=== PATIENT | female | born 1960 | race Caucasian/White ===

== ENCOUNTER → 2023-05-15 | Outpatient (CLI) | payer MEDICARE ==
[2023-05-15 15:25] LABS: Prothrombin Time 10.5 sec (9.0-12.0)
[2023-05-15 21:27] LABS: ALT 14 U/L (8-44); AST 14 U/L (13-35); Albumin 4.7 d/dL (3.8-4.9); Albumin/Globulin Ratio 2.24 Ratio (1.60-3.17); Alkaline Phosphatase 95 U/L (41-126); Blood Urea Nitrogen 28.6 mg/dL (9.0-27.0); Calcium 10.2 mg/dL (8.7-10.3); Carbon Dioxide 24.6 mmol/L (21.6-31.8); Chloride 102 mmol/L (96-109); Globulin 2.1 d/dL (1.6-3.3); Glucose 186 mg/dL (70-110); Potassium 4.2 mmol/L (3.5-5.5); Sodium 142 mmol/L (135-145); Total Bilirubin 1.3 mg/dL (0.3-1.2); Total Protein 6.8 d/dL (6.2-8.2)
[2023-05-15 21:36] LABS: Appearance,Urine Turbid (Clear); Bacteria,Urine 1+ (None Seen); Bilirubin,Urine Negative (Negative); Blood,Urine Trace (Negative); Calcium Oxalate Crystals,Urine Present (None Seen); Color,Urine Yellow (Yellow); Ketones,Urine Trace (Negative); Nitrite,Urine Negative (Negative); Specific Gravity,Urine 1.021 (1.001-1.030); Urobilinogen,Urine 0.2; Yeast (UA) Present (None Seen)
[2023-05-15 22:30] LABS: HCT 37.3 % (37.2-46.3); HGB 11.1 d/dL (12.0-15.0); MCH 26.4 pg (27.0-32.0); MCHC 29.8 d/dL (32.0-37.0); MCV 88.6 FL (80.0-97.0); NRBC Per 100 WBC 0 X 10*3/uL (0.00-0.01); Platelet Count 304 X 10*3/uL (140-440); RBC 4.21 X 10*6/uL (4.10-5.20); RDW 14.6 % (11.5-14.5); WBC 7.34 X 10*3/uL (4.50-10.00)
== END | disposition home or self-care (01) ==
LOC: LABPAT 12:38
PROVIDERS: ATTEND Orthopaedic Surgery
DX: Z01.812 Encounter for preprocedural laboratory examination (principal); M17.11 Unilateral primary osteoarthritis, right knee
CPT/HCPCS: 80053; 81001; 83036; 85027; 85610; 85730; 87070

== ENCOUNTER → 2023-06-06 | Outpatient (CLI) | payer MEDICARE | END | disposition home or self-care (01) | LOC: LABWHC1 13:55 | PROVIDERS: ATTEND Orthopaedic Surgery | DX: E11.9 Type 2 diabetes mellitus without complications (principal) | CPT/HCPCS: 36415; 82985; 83036 ==

== ENCOUNTER → 2023-07-15 | Outpatient (CLI) | payer MEDICARE ==
[2023-07-15 12:06] LABS: HCT 35.3 % (34.0-46.0); HGB 11.3 gm/dL (11.4-16.0); Hypochromasia Moderate; MCH 26.9 pg (25.0-35.0); MCHC 32.1 g/dL (31.0-37.0); MCV 84.1 fL (80.0-100.0); Mean Platelet Volume 9.3; Platelet Count 230 k/uL (150-450); RDW 15.2 % (11.5-15.5); WBC 8.3 k/uL (3.8-10.6)
[2023-07-15 12:20] LABS: ALT 15 U/L (4-34); AST 26 U/L (14-36); African American GFR (CKD) >90 (>60 ml/min/1.73 sqM); Albumin 4.2 g/dL (3.5-5.0); Alkaline Phosphatase 100 U/L (38-126); Anion Gap 11 mmol/L; Blood Urea Nitrogen 27 mg/dL (7-17); Calcium 9.8 mg/dL (8.4-10.2); Carbon Dioxide 26 mmol/L (22-30); Chloride 104 mmol/L (98-107); Glucose 158 mg/dL (74-99); Non-African American GFR(CKD) >90 (>60 ml/min/1.73 sqM); Potassium 3.8 mmol/L (3.5-5.1); Sodium 141 mmol/L (137-145); Total Bilirubin 0.9 mg/dL (0.2-1.3); Total Protein 6.7 g/dL (6.3-8.2)
[2023-07-15 12:30] LABS: INR 1.1 (<1.2); Partial Thromboplastin Time 27.9 sec (22.0-30.0); Prothrombin Time 11.9 sec (10.0-12.5)
[2023-07-15 16:16] LABS: Bacteria,Urine Rare /hpf; Budding Yeast,Urine Many /hpf; Mucus,Urine Moderate /hpf; RBC,Urine 23 /hpf (0-5); Squamous Epithelial Cell,Urine 40 /hpf (0-4); WBC,Urine 145 /hpf (0-5)
[2023-07-15 16:18] LABS: Appearance,Urine Cloudy (Clear); Color,Urine Yellow
[2023-07-15 16:19] LABS: Bilirubin,Urine Negative (Negative); Blood,Urine Trace (Negative); Glucose,Urine (UA) Negative (Negative); Ketones,Urine 1+ (Negative); PH, Urine 5.5 (5.0-8.0); Protein,Urine 1+ (Negative); Specific Gravity,Urine >1.030 (1.001-1.035); Urobilinogen,Urine >2.0 mg/dL (<2.0)
[2023-07-15 16:20] LABS: Leukocyte Esterase,Urine Large (Negative); Nitrite,Urine Negative (Negative)
== END ==
LOC: PAT 10:52
PROVIDERS: ATTEND Orthopaedic Surgery
DX: Z01.812 Encounter for preprocedural laboratory examination (principal); M17.11 Unilateral primary osteoarthritis, right knee
CPT/HCPCS: 80053; 81001; 85027; 85610; 85730; 87070

== ENCOUNTER → 2023-07-20 | Outpatient (CLI) | payer MEDICARE | END | disposition home or self-care (01) | LOC: LABWHC1 16:38 | PROVIDERS: ATTEND Orthopaedic Surgery | DX: M17.11 Unilateral primary osteoarthritis, right knee (principal); M25.461 Effusion, right knee; M79.7 Fibromyalgia | CPT/HCPCS: 36415; 83036 ==

== ENCOUNTER 2023-07-28 08:38 | Observation (INO) | payer MEDICARE ==
[~2023-07-28 08:38] MED LIST: ACETAMINOPHEN TAB 500 MG TAB PO PRN; DEXAMETHASONE SOD PHOSPHATE 10 MG/ML 1 ML VIAL IV PRN; DOCUSATE 100 MG CAP PO PRN; FAMOTIDINE 20 MG/2 ML VIAL IVP PRN; KETOROLAC 15 MG/ML 1 ML VIAL IVP PRN; ONDANSETRON 4 MG/2 ML VIAL IVP PRN; ROPIVACAINE/EPI/CLONIDINE/KET 50 ML SYRINGE MISCELLANE PRN; TRANEXAMIC 1,000 MG/100ML-NACL 1,000 MG in SALINE 1 100ML.BAG IV PRN; TRANEXAMIC 1,000 MG/100ML-NACL 1,000 MG in SALINE 1 100ML.BAG IVPB PRN; oxyCODONE ER 10 MG TAB.ER.12H PO PRN
[2023-07-28] MEDS ORDERED: HYDROmorphone 0.5 MG/0.5 ML SYRINGE IVP PRN (09:00)
[2023-07-28] MEDS ORDERED: ONDANSETRON 4 MG/2 ML VIAL IVP ONE (09:00)
[2023-07-28] MEDS ORDERED: LIDOCAINE 1% (10MG/ML) FOR IV START INTRADERMA PRN (09:00)
[2023-07-28] MEDS ORDERED: droPERidol 5 MG/2 ML VIAL IVP ONE (09:00)
[2023-07-28 09:39] LABS: Glucose,Whole Blood 126 mg/dL (70-110)
[2023-07-28] MEDS: LACTATED RINGERS 1,000 ML IV SCH (09:47)
[2023-07-28] MEDS ORDERED: MIDAZOLAM 2 MG/2 ML VIAL IVP ONE (10:09)
[2023-07-28] MEDS ORDERED: fentaNYL (PF) 50 MCG/ML 2 ML AMP IVP ONE (10:09)
--- NOTE | 2023-07-28 10:36 | P.ANPRN ---
Procedure Note - Anesthesia - Nerve Block Performed Right Adductor Canal Single Time Out Performed: Yes Date of Procedure: 07/28/23 Procedure Start Time: 10:00 Procedure Stop Time: 10:10 Location of Patient: PreOp Indication: Acute Post-Operative Pain, Dx/Pain Location, Requested by Surgeon Sedation Type: Sedate with meaningful contact maintained Preparation: Sterile Prep Position: Supine Catheter: None Needle Types: Pajunk Needle Gauge: 21 Ultrasound used to visualize needle placement: Yes Ultrasound used to observe medication spread: Yes Injectate: 0.5% Ropivacaine (see comment for volume) (20ml) Blood Aspirated: No Pain Paresthesia on Injection Noted: No Resistance on Injection: Normal Image Stored and Saved: Yes Events: Uneventful and Well Tolerated
--- NOTE | 2023-07-28 10:39 | P.ANPRN ---
Procedure Note - Anesthesia - Nerve Block Performed Right Meghan Single Time Out Performed: Yes Date of Procedure: 07/28/23 Procedure Start Time: 10:10 Procedure Stop Time: 10:15 Location of Patient: PreOp Indication: Acute Post-Operative Pain, Dx/Pain Location, Requested by Surgeon Sedation Type: Sedate with meaningful contact maintained Preparation: Sterile Prep Position: Supine Needle Types: Pajunk Needle Gauge: 21 Ultrasound used to visualize needle placement: Yes Ultrasound used to observe medication spread: Yes Injectate: Other (see comment) (0.2% Ropivacaine 15ml) Blood Aspirated: No Pain Paresthesia on Injection Noted: No Resistance on Injection: Normal Image Stored and Saved: Yes Events: Uneventful and Well Tolerated
[2023-07-28] MEDS ORDERED: fentaNYL (PF) 50 MCG/ML 2 ML AMP ONE (10:54)
[2023-07-28] MEDS ORDERED: SUCCINYLCHOLINE CHLORIDE 200 MG/10 ML VIAL IV ONE (10:54)
[2023-07-28] MEDS ORDERED: LIDOCAINE 1% INJ 10MG/ML (20 ML MDV) ONE (10:54)
[2023-07-28] MEDS ORDERED: ROPIVACAINE 5 MG/ML 30 ML VIAL ONE (10:54)
[2023-07-28] MEDS ORDERED: HYDROCORTISONE SUCCINATE 100 MG/2 ML VIAL ONE (10:54)
[2023-07-28] MEDS ORDERED: NEOSTIGMINE 1 MG/ML 10 ML VIAL ONE (10:54)
[2023-07-28] MEDS ORDERED: TRANEXAMIC 1,000 MG/100ML-NACL PREMIX BAG ONE (10:54)
[2023-07-28] MEDS ORDERED: ROCURONIUM 10 MG/ML (5 ML VIAL) IV ONE (10:54)
[2023-07-28] MEDS ORDERED: PROPOFOL 10 MG/ML 20 ML VIAL IV ONE (10:54)
[2023-07-28] MEDS ORDERED: GLYCOPYRROLATE 0.2 MG/ML 2 ML VIAL ONE (10:54)
[2023-07-28] MEDS ORDERED: LACTATED RINGERS 1,000 ML IV ONE (12:35)
[2023-07-28] MEDS ORDERED: NALOXONE 0.4 MG/ML 1 ML VIAL IV PRN (13:11)
[2023-07-28] MEDS ORDERED: HYDROcodone/APAP 5-325MG 1 EACH TAB PO PRN (13:11)
[2023-07-28] MEDS ORDERED: MAGNESIUM HYDROXIDE 2,400 MG/30 ML CUP PO PRN (13:11)
[2023-07-28] MEDS ORDERED: ONDANSETRON 4 MG/2 ML VIAL IVP PRN (13:11)
[2023-07-28] MEDS ORDERED: hydrOXYzine pamoate 25 MG CAP PO PRN (13:11)
--- NOTE | 2023-07-28 13:11 | P.OP ---
Date of Procedure: 07/28/23 Preoperative Diagnosis: 1. Severe right knee arthritis 2. Type 2 diabetes 3. History of DVT and PE Postoperative Diagnosis: Same Procedure(s) Performed: 1. Right total knee arthroplasty 2. Computer assisted musculoskeletal navigation using CT/MRI images 3. Occasional negative pressure incisional wound VAC less than 50 cm, right knee incision measuring 15 cm Implants: 1. Christian [employer] CR Femur Size #4 2. [employer] [place] Tibial Base Size #3 with 12x50 stem 3. Julian [employer] CS poly Size #9 4. Julian [employer]lon all poly patella, Size #29 Anesthesia: GETA, regional Surgeon: Davion Kemp Estimated Blood Loss (ml): 100 IV fluids (ml): 800 Pathology: none sent Condition: stable Disposition: PACU Indications for Procedure: A long discussion with the patient in the office prior to surgery about treatment for her knee arthritis. She had failed a long course of nonsurgical treatment and requested proceeding with surgery. The patient had multiple medical factors. Initially her hemoglobin A1c was elevated and was above 8 and I recommended decreasing this prior to elective surgery. Through diet modification and medications she was able to bring her hemoglobin A1c below 7. We discussed that this will help but she is still at an elevated risk. The patient and her voiced their understanding of this. The knowledge that she is at a higher risk of complication particularly delayed wound healing, superficial infection, periprosthetic joint infection, and periprosthetic fracture. I met with the patient preoperatively in the office setting and discussed treatment of their symptomatic knee arthritis. They failed a long course of nonsurgical treatment and elected to proceed with an elective total knee replacement. I discussed the potential risks and complications at length and gave them ample time to ask questions. Risks discussed included: risks from anesthesia, superficial site surgical infection, acute and/or chronic periprosthetic joint infection, delayed wound healing, drainage, wound necrosis, instability, stiffness, stiffness requiring manipulation and/or revision surgery, damage to local blood vessels or nerves, aseptic loosening of the implants, extensor mechanism issues including disruption, patellar maltracking, avascular necrosis etc., continued or worsened knee pain, generalized dissatisfaction with surgical outcome, need for revision surgery, an inability to regain preinjury level of function, DVT, PE, other medical complications, and possibly loss of life or limb. The patient voiced their understanding that while these are the most common complications other less common complications are possible. They provided both their verbal and written consent to go forward with surgery. Operative Findings: Severe tricompartmental knee osteoarthritis Description of Procedure: The patient was identified in preoperative holding and the correct operative extremity was verified and marked with a marker. I reviewed the consent form with the patient at length. All of their questions were answered. The patient was given a block by anesthesia. They were then brought back to the operating room. They were transferred onto the operating room table where a general anesthetic, preoperative antibiotics, and tranexamic acid were administered by anesthesia. A tourniquet was applied to the proximal aspect of the operative extremity. The contralateral extremity was padded under the heel and secured to the operating room table with a nonsterile blue towel and tape. The ipsilateral arm was carefully draped across the patient's chest and secured with a pillow and foam. A post was applied over the lateral aspect of the ipsilateral thigh and a bolster was placed under the ipsilateral foot. I verified that the operative extremity was stable and the knee was flexed to 90. The operative extremity was then placed in a leg johnston, nonsterile drapes were applied, and the extremity was prepped and draped sterilely in the standard sterile fashion. Prior to starting surgery timeout was performed identifying the correct patient, operative extremity, and procedure. The leg was then elevated, exsanguinated with an Esmarch bandage, and the tourniquet was inflated. An anterior midline incision was made sharply with a scalpel. Once I had dissected deep to the superficial fascial layer medial and lateral flaps were elevated. A medial parapatellar arthrotomy was created. Upon opening the knee joint there were diffuse arthritic changes in all 3 compartments. The anterior horn of the medial meniscus were sharply released and a medial release was performed around the posterior medial corner of the knee to facilitate retractor placement. The fat pad was excised with electrocautery. The patella was found to be severely arthritic and a provisional cut was made with a sagittal saw to facilitate mobilization of the extensor mechanism during the procedure. Remnants of the ACL and PCL were then excised from the notch. 4 mm pins were then placed within the incision in the medial distal femur and proximal tibia. Arrays were applied to the pins and I verified they were completely tightened. The knee was then registered with the Bubbli robot and manipulations in implant position were made to balance the knee and opitmize implant position. Using the Paras robotic saw all cuts were made in accordance with our plan. After all bony fragments had been removed the cuts were verified with the planar probe. The tibia was then subluxed forward and sized. The knee was brought into flexion and a lamina psychiatry teacher was placed to allow removal of the meniscal remnants both medially and laterally as well as posterior osteophytes. Local anesthetic was then infiltrated around the joint capsule. Trial implants were then placed within the knee. Range of motion and collateral ligament tension was then evaluated. Adjustments in implant size and position were then made accordingly. Once the knee was felt to be appropriately balanced the Paras pins were removed. The patella was then recut, sized, and punched. A trial patellar button was then placed. With the trial components in place, the patella tracked midline. The femur was then drilled and the trial component removed. The trial tibial component was then appropriately rotated, pinned, and prepared for the keel. All trial components were then removed from the knee. The knee was thoroughly irrigated with pulsatile lavage. Cement was prepared via vacuum mixing in a bowl on the back table. I then hand pressurized cement into the femur and tibia and placed the implants beginning with the tibial base tray and poly liner, femoral component, and finally the patellar button. All extruded cement was removed including from the pin sites. Once the cement had hardened the knee was evaluated one final time with the final polyethylene liner in place. The knee had full extension and flexion and felt stable to varus and valgus stress throughout the arc of motion. The tourniquet was released and with the tourniquet down the patella tracked midline. All bleeders were controlled with electrocautery. The knee was then soaked for 3 minutes with a dilute Betadine soak. The knee was thoroughly irrigated using 3 L of sterile saline and pulsatile lavage. The extensor mechanism was then reapproximated using pop off Vicryl sutures followed by a running barbed suture. The knee was then closed in layers with a 0 strata fix for the deep fascial layer, 2-0 strata fix for the superficial subcutaneous layer and Monocryl for the skin. Due to the patient's multiple medical problems and poor soft tissue. Nylon sutures were placed to reinforce the skin closure. Due to the patient's multiple medical problems, need for anticoagulation, and history of diabetes an incisional wound VAC was applied over the closed incision. The incision measured 15 cm. After the incisional wound VAC was applied and hooked up to its suction there was an excellent seal. I verified that all instrument, sponge, and sharp counts were correct. The patient was then transferred off the operating room table, extubated, and brought to recovery having tolerated the procedure well. PLAN: The patient can weight-bear as tolerated on the operative extremity. DVT prophylaxis - can resume anticoagulation per Internal Medicine. Follow-up in the office in 2 weeks for wound check and x-rays of the knee including an AP and lateral.
--- NOTE | 2023-07-28 14:07 | XR ---
EXAMINATION TYPE: XR knee limited RT DATE OF EXAM: 07/28/2023 1:54 PM CLINICAL INDICATION:Female, 62 years old with history of Evaluation for Postop abnormality and alignm ent; [facility] COMPARISON: None. TECHNIQUE: XR knee limited RT; examined in Frontal, lateral projections. FINDINGS: Status post total knee arthroplasty changes with hardware in appropriate alignment and in tact. No evidence of fracture. Subcutaneous lucencies and lucencies within the joint consistent with surgical changes. IMPRESSION: Status post total knee arthroplasty changes with hardware intact and appropriate alignment. No fractu res identified.
[2023-07-28] MEDS: HYDROcodone/APAP 10-325MG 1 EACH TAB PO PRN (16:03)
[2023-07-28] MEDS: SODIUM CHLORIDE 0.9% 1,000 ML IV SCH (16:03)
[2023-07-28 20:49] LABS: Glucose,Whole Blood 241 mg/dL (70-110)
[2023-07-28] MEDS: HYDROmorphone 1 MG/ML 1 ML SYRINGE IVP PRN (21:38)
[2023-07-28] MEDS: SENNOSIDES-DOCUSATE SODIUM 1 EACH TAB PO SCH (21:39)
[2023-07-28] MEDS: FAMOTIDINE 20 MG TAB PO SCH (21:39)
[2023-07-28] MEDS: PREGABALIN 75 MG CAP PO SCH (21:39)
[2023-07-28] MEDS: DIVALPROEX SPRINKLE 125 MG CAP.SPRINK PO SCH (21:41)
[2023-07-28] MEDS: QUEtiapine 50 MG TAB PO SCH (21:41)
[2023-07-28] MEDS ORDERED: DEXTROSE 50% SYRINGE 50 ML IVP PRN ×2 (21:45)
[2023-07-28] MEDS ORDERED: TEMAZEPAM 15 MG CAP PO PRN (22:00)
[2023-07-28] MEDS ORDERED: INSULIN ASPART (NovoLOG) 100 UNIT/ML VIAL SQ ONE ×2 (22:05→23:06)
[2023-07-28 22:53] LABS: Glucose,Whole Blood 166 mg/dL (70-110)
[2023-07-29] MEDS: HYDROcodone/APAP 10-325MG 1 EACH TAB PO PRN ×5 (00:29→23:57)
--- NOTE | 2023-07-29 01:05 | P.CONS ---
History of Present Illness - Reason for Consult Consult date: 07/28/23 medical management - Chief Complaint right knee arthritis - History of Present Illness 62 year old female with arthritis , h/o blood clots on eliquis patient coming in for scheduled right knee arthroplasty , tolerated procedure well , no observed immediate post op complications denies chest pain, SOB, fever, chills, nausea or vomiting , pain controlle d, right knee with wound vac. history of arthritis (RA) on plaquinel and prednisone 10 mg po daily for the past 2 months , history of multiple blood clots on eliquis currently on hold for perioperative period . she was switched to sc lovenox for the past few days prior to surgery she denies any fever, chills, cough, sore throat, chest pain , trouble breathing , nausea , vomiting, abd pain , changes in urinary or bowel habits. review of systems Pertinent positives as noted in HPI. All other systems were reviewed and are negative on exam Constitutional: No acute distress, conversant, pleasant Eyes: Anicteric sclerae, moist conjunctiva, Pupils equal round reactive to light ENMT: NC/AT Oropharynx clear, no erythema, or exudates Neck: Supple, no masses, or JVD No carotid bruits No thyromegaly Lungs: Clear to auscultation Clear to percussion Normal respiratory effort, no accessory muscle use Cardiovascular: Heart regular in rate and rhythm, No murmurs, gallops, or rubs No peripheral edema Abdominal: Soft Nontender, no guarding, rebound or rigidity Abdomen moving with respiration Normoactive bowel sounds No hepatomegaly, No splenomegaly No palpable mass No abdominal wall hernia noted Extremities: No digital cyanosis No clubbing Pedal pulses intact and symmetrical Radial pulses intact and symmetrical No calf tenderness Psychiatric: Alert and oriented to person, place and time Appropriate affect fair judgement Neuro Muscles Strength 5/5 in all 4 extremities limited exam over right knee due to post operative pain Sensation to light touch grossly present throughout Cranial nerves II-XII grossly intact Lymphatics: no palpable cervical or supraclavicular lymph nodes Past Medical History Past Medical History: Diabetes Mellitus, Deep Vein Thrombosis (DVT), Fibromyalgia, Osteoarthritis (OA), Pulmonary Embolus (PE), Respiratory Disorder, Skin Disorder, Sleep Apnea/CPAP/BIPAP, Thyroid Disorder, Vascular Disorder Additional Past Medical History / Comment(s): Adrenal insufficiency,high hemocysteine levels,2022 left DVT& 2018 DVT,4 PEs left lung 3-2022, use cpap,psoriasis,psoriatic arthritis History of Any Multi-Drug Resistant Organisms: None Reported Past Surgical History: Appendectomy, Hysterectomy, Orthopedic Surgery, Tonsillectomy Additional Past Surgical History / Comment(s): [place]dock Filter,Reverse total left shoulder,cervical fusion C5-C6 Past Anesthesia/Blood Transfusion Reactions: Postoperative Nausea & Vomiting (PONV) Additional Past Anesthesia/Blood Transfusion Reaction / Comm: no hx blood transfusion Past Psychological History: Anxiety, Depression Smoking Status: Never smoker Past Alcohol Use History: Rare Past Drug Use History: None Reported - Past Family History Mother Additional Family Medical History / Comment(s): ruptured bowel Father Family Medical History: Cancer Additional Family Medical History / Comment(s): colon and blood CA Medications and Allergies Home Medications Medication Instructions Recorded Confirmed Type Apixaban [Eliquis] 5 mg PO BID 05/17/23 07/26/23 History Clopidogrel [Plavix] 75 mg PO DAILY 05/17/23 07/26/23 History Divalproex Sodium 125 mg PO HS 05/17/23 07/26/23 History Dulaglutide [Trulicity] 1.5 mg SQ TU 05/17/23 07/26/23 History Enoxaparin [Lovenox] 80 mg SQ Q12H 05/17/23 07/26/23 History Famotidine 40 mg PO HS 05/17/23 07/26/23 History Hydroxychloroquine Sulfate 200 mg PO BID 05/17/23 07/26/23 History [Plaquenil] Levothyroxine Sodium 125 mcg PO QAM 05/17/23 07/26/23 History Pregabalin 150 mg PO BID 05/17/23 07/26/23 History QUEtiapine [SEROquel] 50 mg PO HS 05/17/23 07/26/23 History buPROPion SR [Wellbutrin SR] 300 mg PO QAM 05/17/23 07/26/23 History diphenhydrAMINE [Benadryl] 25 mg PO QID PRN 05/17/23 07/26/23 History glipiZIDE 5 mg PO BID 05/17/23 07/26/23 History predniSONE [Deltasone] 10 mg PO QAM 05/17/23 07/26/23 History tiZANidine [Zanaflex] 2 mg PO TID PRN 05/17/23 07/26/23 History Constipation Rx(Unk Dose) 1 tab PO DIRECTED 07/26/23 07/26/23 History HYDROcodone/APAP 5-325MG [Paulina 1 tab PO Q6HR PRN 07/26/23 07/26/23 History 5-325] Multivit with Calcium,Iron,Min 1 each PO DAILY 07/26/23 07/26/23 History [Women's Multivitamin] Mupirocin [Bactroban Nasal 1 applic TOPICAL DIRECTED 07/26/23 07/26/23 History Ointment 2% (with applicator)] Allergies Allergy/AdvReac Type Severity Reaction Status Date / Time bee venom protein (honey bee) Allergy Anaphylaxis Verified 07/28/23 09:25 ciprofloxacin [From Cipro] Allergy Swelling Verified 07/28/23 09:25 Penicillins Allergy Itching Verified 07/28/23 09:25 Physical Exam Vitals: Vital Signs Temp Pulse Pulse Resp BP Pulse Ox 07/28/23 20:47 98.3 F 91 16 99/59 95 07/28/23 16:45 76 121/78 98 07/28/23 16:14 75 122/68 97 07/28/23 15:59 70 120/84 96 07/28/23 15:44 70 113/75 98 07/28/23 15:14 75 126/78 97 07/28/23 14:59 80 16 116/74 92 L 07/28/23 14:45 98.0 F 70 16 119/75 97 07/28/23 14:18 76 17 119/72 97 07/28/23 14:03 75 17 119/72 98 07/28/23 13:48 81 16 121/63 97 07/28/23 13:33 80 16 126/68 97 07/28/23 13:18 82 16 117/63 100 07/28/23 13:03 97.1 F L 89 12 141/67 98 07/28/23 10:20 72 16 133/69 100 07/28/23 10:00 97.2 F L 83 16 124/77 100 Intake and Output 07/28/23 07/28/23 07/29/23 14:59 22:59 06:59 Intake Total 1250 Output Total 100 200 Balance 1150 -200 Intake: IV 1250 Output: Urine 200 Estimated Blood Loss 100 Other: Weight 71.6 kg Results Labs: Abnormal Lab Results - Last 24 Hours (Table) 07/28/23 07/28/23 07/28/23 Range/Units 09:38 20:48 22:51 POC Glucose (mg/dL) 126 H 241 H 166 H (70-110) mg/dL Assessment and Plan Assessment: right knee arthritis post knee replacement, POD zero management per orthopedic team wound vac right knee pain control dilaudid chronic conditions arthritis (RA, psoriatic arthritis) hold plaquinel for 1 week if possible , to promote wound healing , if this is not tolerated , resume when needed resume prednisone 10 mg po daily recurrent venous thromboembolism resume eliquis when cleared by orthopedic patient has IVC filter DM insulin sliding scale hold oral hypoglycemic agents hypothyroid resume levothyroxine VANDA encourage to use CPAP , patient has the machine at bedside dvt ppx, resume eliquis when cleared by ortho , due to history of recurrent venous thromboembolism full code GI PPX pepcid 40 mg po QHS stable from medical stand point cbc, cmp in AM
[2023-07-29] MEDS: SODIUM CHLORIDE 0.9% 1,000 ML IV SCH ×3 (03:39→23:16)
[2023-07-29] MEDS: HYDROmorphone 1 MG/ML 1 ML SYRINGE IVP PRN ×3 (04:27→14:51)
[2023-07-29 05:55] LABS: Glucose,Whole Blood 92 mg/dL (70-110)
[2023-07-29] MEDS: INSULIN ASPART (NovoLOG) 100 UNIT/ML VIAL SQ SCH ×4 (06:18→20:54)
[2023-07-29] MEDS: LEVOTHYROXINE 125 MCG TAB PO SCH (06:19)
--- NOTE | 2023-07-29 08:25 | P.PN ---
Subjective Progress Note Date: 07/29/23 Doing well this morning. She is painful in her operative knee. She denies chest pain or shortness of breath. Objective - Vital Signs Vital signs: Vital Signs Temp 98.4 F 07/29/23 01:46 Pulse 79 07/29/23 01:46 Resp 16 07/29/23 01:46 BP 103/67 07/29/23 03:58 Pulse Ox 92 L 07/29/23 01:46 FiO2 Intake & Output 07/28/23 07/29/23 07/29/23 18:59 06:59 18:59 Intake Total 1250 Output Total 100 200 Balance 1150 -200 Weight 71.6 kg Intake: IV 1250 Output: Urine 200 Estimated Blood Loss 100 Other: # Voids 1 - Exam The patient is alert and able to answer questions. A focused examination of the right lower extremity was conducted. On inspection there is no intact incisional wound VAC over the anterior aspect of the knee with good seal. There is mild to moderate swelling throughout the right knee and leg. Her calf and thigh are soft. Femoral nerve function is intact. She able to actively plantar flex and dorsiflex her ankle and her toes. - Labs Labs: Abnormal Lab Results - Last 24 Hours (Table) 07/28/23 07/28/23 07/28/23 Range/Units 09:38 20:48 22:51 POC Glucose (mg/dL) 126 H 241 H 166 H (70-110) mg/dL Assessment and Plan Assessment: Postoperative day #1 status post right total knee replacement Type 2 diabetes History of DVT and PE Plan: 1. Weightbearing as tolerated right lower extremity, up with assistance of a walker 2. DVT prophylaxis - okay to resume Eliquis, dose per internal medicine 3. 2 doses postoperative antibiotics followed by doxycycline 100 mg twice a day until her incision heals 4. Leave surgical dressing in place 5. Physical therapy 6. Dispo: The bedside patient does with physical therapy. Likely need discharge to rehab and will be in-house over the weekend.
[2023-07-29] MEDS: LACTATED RINGERS 1,000 ML IV SCH (09:10)
[2023-07-29] MEDS: DOXYCYCLINE 100 MG CAP PO SCH ×2 (09:12→20:59)
[2023-07-29] MEDS: PREGABALIN 75 MG CAP PO SCH ×2 (09:12→21:00)
[2023-07-29] MEDS: buPROPion SR 150 MG TABLET.ER PO SCH (09:12)
[2023-07-29] MEDS: predniSONE 10 MG TAB PO SCH (09:13)
[2023-07-29 09:26] LABS: Basophils # (A) 0.02 X 10*3/uL (0.00-0.10); Basophils % (A) 0.3 %; Eosinophils # (A) 0.03 X 10*3/uL (0.04-0.35); Eosinophils % (A) 0.5 %; HCT 33.8 % (37.2-46.3); HGB 9.9 g/dL (12.0-15.0); Lymphocytes # (A) 1.31 X 10*3/uL (0.90-5.00); Lymphocytes % (A) 20.2 %; MCH 26.2 pg (27.0-32.0); MCHC 29.3 g/dL (32.0-37.0); MCV 89.4 FL (80.0-97.0); Mean Platelet Volume 12.5 FL (9.5-12.2); Monocytes # (A) 0.54 X 10*3/uL (0.20-1.00); Monocytes % (A) 8.3 %; NRBC Per 100 WBC 0 X 10*3/uL (0.00-0.01); Neutrophils # (A) 4.58 X 10*3/uL (1.80-7.70); Neutrophils % (A) 70.4 %; Platelet Count 135 X 10*3/uL (140-440); RBC 3.78 X 10*6/uL (4.10-5.20); RDW 15.6 % (11.5-14.5)
[2023-07-29 11:39] LABS: Glucose,Whole Blood 166 mg/dL (70-110)
[2023-07-29 12:46] LABS: ALT 24 U/L (8-44); AST 23 U/L (13-35); Albumin 3.6 g/dL (3.8-4.9); Albumin/Globulin Ratio 1.89 Ratio (1.60-3.17); Alkaline Phosphatase 82 U/L (41-126); BUN/Creat Ratio 18.38 Ratio (12.00-20.00); Blood Urea Nitrogen 14.7 mg/dL (9.0-27.0); Calcium 9.2 mg/dL (8.7-10.3); Carbon Dioxide 21.8 mmol/L (21.6-31.8); Chloride 108 mmol/L (96-109); Globulin 1.9 g/dL (1.6-3.3); Glucose 90 mg/dL (70-110); Potassium 3.7 mmol/L (3.5-5.5); Sodium 145 mmol/L (135-145); Total Bilirubin 0.3 mg/dL (0.3-1.2); Total Protein 5.5 g/dL (6.2-8.2)
--- NOTE | 2023-07-29 13:19 | P.PN ---
Subjective Progress Note Date: 07/29/23 Subjective: Seen and examined at bedside. No acute events overnight. Still having si gnificant knee pain. Denies any other complaints. Pertinent positives and negatives as discussed above, a complete review of systems was performed and all other systems are negative. Vitals Signs Reviewed. General: nontoxic, no distress, appears at stated age Derm: warm, dry, dressing clean, dry, intact, wound VAC in place. Head: atraumatic, normocephalic, symmetric Eyes: EOMI, no lid lag, anicteric sclera Mouth: no lip lesion, mucus membranes moist Cardiovascular: S1S2 reg, no murmur Lungs: CTA bilateral, no rhonchi, no rales , no accessory muscle use Abdominal: soft, nontender to palpation, no guarding, no appreciable organomegaly Ext: no gross muscle atrophy, no edema, no contractures Neuro: CN II-XI grossly intact, no focal neuro deficits Psych: Alert, oriented, appropriate affect Data Reviewed Today: Pertinent Labs: Hemoglobin 9.9, platelets 135, creatinine 0.8, blood sugars range between 90-166 Imaging: No new imaging Assessment and Plan: right knee arthritis status post knee replacement Acute anemia, anticipated outcomes are -management per orthopedic team -wound vac right knee -pain control with oral [place] as needed and IV dilaudid as needed, monitor for respiratory depression arthritis (RA, psoriatic arthritis) -hold plaquinel for 1 week if possible , to promote wound healing , if this is not tolerated , resume when needed -Continue prednisone 10 mg po daily History of recurrent venous thromboembolism , status post IVC filter -[facility] DM -insulin sliding scale , monitor for hypoglycemia -hold oral hypoglycemic agents hypothyroid -Continue levothyroxine 125 MCG VANDA -encourage to use CPAP , patient has the machine at bedside Thank you for allowing us to participate in the care of this pleasant patient. Do not hesitate to contact us with questions. Someone can be reached from the [facility] hospitalist group all hours of the day at [phone] or via perfect serve. Objective - Vital Signs Vital signs: Vital Signs Temp 99.8 F H 07/29/23 08:00 Pulse 62 07/29/23 08:00 Resp 18 07/29/23 08:00 BP 102/63 07/29/23 08:00 Pulse Ox 93 L 07/29/23 08:00 FiO2 Intake & Output 07/28/23 07/29/23 07/29/23 18:59 06:59 18:59 Intake Total 1250 Output Total 100 200 Balance 1150 -200 Weight 71.6 kg Intake: IV 1250 Output: Urine 200 Estimated Blood Loss 100 Other: # Voids 1 - Labs CBC & Chem 7: 07/29/23 06:09 07/29/23 06:09 Labs: Abnormal Lab Results - Last 24 Hours (Table) 07/28/23 07/28/23 07/29/23 Range/Units 20:48 22:51 06:09 RBC 3.78 L (4.10-5.20) X 10*6/uL Hgb 9.9 L (12.0-15.0) g/dL Hct 33.8 L (37.2-46.3) % MCH 26.2 L (27.0-32.0) pg MCHC 29.3 L (32.0-37.0) g/dL RDW 15.6 H (11.5-14.5) % Plt Count 135 L (140-440) X 10*3/uL MPV 12.5 H (9.5-12.2) FL Eosinophils # 0.03 L (0.04-0.35) X 10*3/uL Anion Gap (4.00-12.00) mmol/L POC Glucose (mg/dL) 241 H 166 H (70-110) mg/dL Total Protein (6.2-8.2) g/dL Albumin (3.8-4.9) g/dL 07/29/23 07/29/23 Range/Units 06:09 11:38 RBC (4.10-5.20) X 10*6/uL Hgb (12.0-15.0) g/dL Hct (37.2-46.3) % MCH (27.0-32.0) pg MCHC (32.0-37.0) g/dL RDW (11.5-14.5) % Plt Count (140-440) X 10*3/uL MPV (9.5-12.2) FL Eosinophils # (0.04-0.35) X 10*3/uL Anion Gap 15.20 H (4.00-12.00) mmol/L POC Glucose (mg/dL) 166 H (70-110) mg/dL Total Protein 5.5 L (6.2-8.2) g/dL Albumin 3.6 L (3.8-4.9) g/dL
[2023-07-29 16:55] LABS: Glucose,Whole Blood 175 mg/dL (70-110)
[2023-07-29 20:39] LABS: Glucose,Whole Blood 94 mg/dL (70-110)
[2023-07-29] MEDS: SENNOSIDES-DOCUSATE SODIUM 1 EACH TAB PO SCH (20:59)
[2023-07-29] MEDS: DIVALPROEX SPRINKLE 125 MG CAP.SPRINK PO SCH (20:59)
[2023-07-29] MEDS: APIXABAN 5 MG TAB PO SCH (20:59)
[2023-07-29] MEDS: FAMOTIDINE 20 MG TAB PO SCH (20:59)
[2023-07-29] MEDS: QUEtiapine 50 MG TAB PO SCH (20:59)
[2023-07-30] MEDS: diazePAM 5 MG TAB PO PRN (03:10)
[2023-07-30 05:41] LABS: Glucose,Whole Blood 104 mg/dL (70-110)
[2023-07-30] MEDS: INSULIN ASPART (NovoLOG) 100 UNIT/ML VIAL SQ SCH ×4 (05:46→20:05)
[2023-07-30] MEDS: LEVOTHYROXINE 125 MCG TAB PO SCH (06:25)
[2023-07-30] MEDS: HYDROcodone/APAP 10-325MG 1 EACH TAB PO PRN ×3 (06:26→19:55)
[2023-07-30] MEDS: SODIUM CHLORIDE 0.9% 1,000 ML IV SCH ×2 (06:27→16:18)
--- NOTE | 2023-07-30 08:16 | P.PN ---
Subjective Progress Note Date: 07/30/23 Patient is complaining of pain in her right knee. He was up several times yesterday walking to the bathroom. She denies chest pain or shortness of breath. Objective - Vital Signs Vital signs: Vital Signs Temp 102.3 F H 07/30/23 07:00 Pulse 100 07/30/23 07:00 Resp 17 07/30/23 07:00 BP 115/77 07/30/23 07:00 Pulse Ox 90 L 07/30/23 07:00 FiO2 Intake & Output 07/29/23 07/30/23 07/30/23 18:59 06:59 18:59 Other: # Voids 3 4 - Exam The patient is resting comfortably in her bed. A focused exam of the right lower extremity was conducted. On inspection she has an intact incisional wound VAC. The canister is out of battery and I pointed in an immediately upon returning on the wound VAC there was good seal. Her thigh and calf are soft. She is able to actively plantar flex and dorsiflex her ankle and her toes. - Labs CBC & Chem 7: 07/29/23 06:09 07/29/23 06:09 Labs: Abnormal Lab Results - Last 24 Hours (Table) 07/29/23 07/29/23 07/29/23 Range/Units 06:09 06:09 11:38 RBC 3.78 L (4.10-5.20) X 10*6/uL Hgb 9.9 L (12.0-15.0) g/dL Hct 33.8 L (37.2-46.3) % MCH 26.2 L (27.0-32.0) pg MCHC 29.3 L (32.0-37.0) g/dL RDW 15.6 H (11.5-14.5) % Plt Count 135 L (140-440) X 10*3/uL MPV 12.5 H (9.5-12.2) FL Eosinophils # 0.03 L (0.04-0.35) X 10*3/uL Anion Gap 15.20 H (4.00-12.00) mmol/L POC Glucose (mg/dL) 166 H (70-110) mg/dL Total Protein 5.5 L (6.2-8.2) g/dL Albumin 3.6 L (3.8-4.9) g/dL 07/29/23 Range/Units 16:54 RBC (4.10-5.20) X 10*6/uL Hgb (12.0-15.0) g/dL Hct (37.2-46.3) % MCH (27.0-32.0) pg MCHC (32.0-37.0) g/dL RDW (11.5-14.5) % Plt Count (140-440) X 10*3/uL MPV (9.5-12.2) FL Eosinophils # (0.04-0.35) X 10*3/uL Anion Gap (4.00-12.00) mmol/L POC Glucose (mg/dL) 175 H (70-110) mg/dL Total Protein (6.2-8.2) g/dL Albumin (3.8-4.9) g/dL Assessment and Plan Assessment: Right total knee arthroplasty postoperative day #2 Type 2 diabetes History of DVT and PE Plan: Continue treatment as outlined previously. Appreciate internal medicine's assistance with preoperative medical management and recommendations for anticoagulation. With the patient's family and therapy has recommended alf facility or rehab after discharge. The patient was initially hesitant to do this but after our conversation this morning she seems more agreeable. We will continue planning for this. We will keep her another night and see how she is doing tomorrow.
[2023-07-30] MEDS: PREGABALIN 75 MG CAP PO SCH ×2 (08:40→19:53)
[2023-07-30] MEDS: DOXYCYCLINE 100 MG CAP PO SCH ×2 (08:40→19:53)
[2023-07-30] MEDS: buPROPion SR 150 MG TABLET.ER PO SCH (08:40)
[2023-07-30] MEDS: predniSONE 10 MG TAB PO SCH (08:40)
[2023-07-30] MEDS: APIXABAN 5 MG TAB PO SCH ×2 (08:40→19:53)
[2023-07-30] MEDS: LACTATED RINGERS 1,000 ML IV SCH (08:42)
[2023-07-30 11:54] LABS: Glucose,Whole Blood 173 mg/dL (70-110)
--- NOTE | 2023-07-30 15:26 | P.PN ---
Subjective Progress Note Date: 07/30/23 Subjective: Seen and examined at bedside. No acute events overnight. Still having sig nificant knee pain. Denies any other complaints. Was febrile overnight. Denies any urinary complaints. Denies any nausea, vomiting, abdominal pain, chest pain or respiratory distress. Pertinent positives and negatives as discussed above, a complete review of systems was performed and all other systems are negative. Vitals Signs Reviewed. General: nontoxic, no distress, appears at stated age Derm: warm, dry, dressing clean, dry, intact, wound VAC in place. Head: atraumatic, normocephalic, symmetric Eyes: EOMI, no lid lag, anicteric sclera Mouth: no lip lesion, mucus membranes moist Cardiovascular: S1S2 reg, no murmur Lungs: CTA bilateral, no rhonchi, no rales , no accessory muscle use Abdominal: soft, nontender to palpation, no guarding, no appreciable organomegaly Ext: no gross muscle atrophy, no edema, no contractures Neuro: CN II-XI grossly intact, no focal neuro deficits Psych: Alert, oriented, appropriate affect Data Reviewed Today: Pertinent Labs: Blood sugars range between 94-175, COVID-19 negative Imaging: No new imaging Assessment and Plan: right knee arthritis status post knee replacement Acute anemia, anticipated outcomes are -management per orthopedic team -wound vac right knee -pain control with oral [place] as needed and IV dilaudid as needed, monitor for respiratory depression Isolated episode of fever -Possibly related to atelectasis -Blood cultures pending -Does not have any infectious signs or symptoms -COVID-19 negative -Continue to monitor -Continue incentive spirometer arthritis (RA, psoriatic arthritis) -hold plaquinel for 1 week if possible , to promote wound healing , if this is not tolerated , resume when needed -Continue prednisone 10 mg po daily History of recurrent venous thromboembolism , status post IVC filter -on Eliquis primary care twice a day DM -insulin sliding scale , monitor for hypoglycemia -hold oral hypoglycemic agents hypothyroid -Continue levothyroxine 125 MCG VANDA -encourage to use CPAP , patient has the machine at bedside Thank you for allowing us to participate in the care of this pleasant patient. Do not hesitate to contact us with questions. Someone can be reached from the [facility] hospitalist group all hours of the day at [phone] or via perfect serve. Objective - Vital Signs Vital signs: Vital Signs Temp 102.3 F H 07/30/23 07:00 Pulse 100 07/30/23 08:00 Resp 17 07/30/23 08:00 BP 115/77 07/30/23 07:00 Pulse Ox 90 L 07/30/23 07:00 FiO2 Intake & Output 07/29/23 07/30/23 07/30/23 18:59 06:59 18:59 Other: # Voids 3 4 - Labs CBC & Chem 7: 07/29/23 06:09 07/29/23 06:09 Labs: Abnormal Lab Results - Last 24 Hours (Table) 07/29/23 07/30/23 Range/Units 16:54 11:53 POC Glucose (mg/dL) 175 H 173 H (70-110) mg/dL
[2023-07-30 16:47] LABS: Glucose,Whole Blood 151 mg/dL (70-110)
[2023-07-30 19:52] LABS: Glucose,Whole Blood 149 mg/dL (70-110)
[2023-07-30] MEDS: FAMOTIDINE 20 MG TAB PO SCH (19:52)
[2023-07-30] MEDS: QUEtiapine 50 MG TAB PO SCH (19:53)
[2023-07-30] MEDS: SENNOSIDES-DOCUSATE SODIUM 1 EACH TAB PO SCH (19:53)
[2023-07-30] MEDS: DIVALPROEX SPRINKLE 125 MG CAP.SPRINK PO SCH (19:55)
[2023-07-31] MEDS: diazePAM 5 MG TAB PO PRN ×3 (01:23→19:56)
[2023-07-31] MEDS: HYDROcodone/APAP 10-325MG 1 EACH TAB PO PRN ×4 (04:10→21:52)
[2023-07-31] MEDS: SODIUM CHLORIDE 0.9% 1,000 ML IV SCH ×3 (05:12→22:24)
[2023-07-31 05:39] LABS: Glucose,Whole Blood 125 mg/dL (70-110)
[2023-07-31] MEDS: INSULIN ASPART (NovoLOG) 100 UNIT/ML VIAL SQ SCH ×4 (05:44→19:49)
[2023-07-31] MEDS: LEVOTHYROXINE 125 MCG TAB PO SCH (06:37)
--- NOTE | 2023-07-31 07:40 | P.PN ---
Subjective The right knee is slightly improved this morning. The patient says he is been up several times in her room with a walker and assistance. She is more agreeable to rehab today. Objective - Vital Signs Vital signs: Vital Signs Temp 100.6 F H 07/31/23 00:20 Pulse 92 07/31/23 00:20 Resp 18 07/31/23 00:20 BP 122/78 07/31/23 00:20 Pulse Ox 93 L 07/31/23 00:20 FiO2 Intake & Output 07/30/23 07/31/23 07/31/23 18:59 06:59 18:59 Intake Total 360 Balance 360 Intake: Oral 360 Other: # Voids 4 1 # Bowel Movements 1 - Exam Patient is resting comfortably in bed. She is alert and able to answer questions. On inspection of the right knee there is no intact incisional wound VAC with good seal. Her thigh and calf are soft per G able to actively plantar flex and dorsiflex her ankle and her toes. - Labs CBC & Chem 7: 07/29/23 06:09 07/29/23 06:09 Labs: Abnormal Lab Results - Last 24 Hours (Table) 07/30/23 07/30/23 07/30/23 Range/Units 11:53 16:46 19:43 POC Glucose (mg/dL) 173 H 151 H 149 H (70-110) mg/dL 07/31/23 Range/Units 05:37 POC Glucose (mg/dL) 125 H (70-110) mg/dL Assessment and Plan Assessment: Postoperative day #3 status post right total knee replacement Multiple medical problems Plan: Continue treatment as outlined in regards to her right knee. She has been resumed on anticoagulation for DVT prophylaxis given her extensive history. She received 2 doses of Ancef and is now on doxycycline given her higher risk of wound healing issues and infection. She is more agreeable to rehab today. Discharge planning is in process.
[2023-07-31 08:14] LABS: ALT 13 U/L (4-34); AST 18 U/L (14-36); African American GFR (CKD) >90 (>60 ml/min/1.73 sqM); Albumin 2.6 g/dL (3.5-5.0); Albumin/Globulin Ratio 1.1; Alkaline Phosphatase 75 U/L (38-126); Anion Gap 9 mmol/L; Blood Urea Nitrogen 12 mg/dL (7-17); Calcium 8.6 mg/dL (8.4-10.2); Carbon Dioxide 25 mmol/L (22-30); Chloride 104 mmol/L (98-107); Globulin 2.4 g/dL; Glucose 104 mg/dL (74-99); Non-African American GFR(CKD) >90 (>60 ml/min/1.73 sqM); Potassium 3.4 mmol/L (3.5-5.1); Sodium 138 mmol/L (137-145); Total Bilirubin 0.8 mg/dL (0.2-1.3)
[2023-07-31] MEDS: PREGABALIN 75 MG CAP PO SCH ×2 (08:32→19:49)
[2023-07-31] MEDS: predniSONE 10 MG TAB PO SCH (08:33)
[2023-07-31] MEDS: CLOPIDOGREL 75 MG TAB PO SCH (08:33)
[2023-07-31] MEDS: buPROPion SR 150 MG TABLET.ER PO SCH (08:33)
[2023-07-31] MEDS: APIXABAN 5 MG TAB PO SCH ×2 (08:33→19:49)
[2023-07-31] MEDS: DOXYCYCLINE 100 MG CAP PO SCH ×2 (08:33→19:48)
[2023-07-31] MEDS: LACTATED RINGERS 1,000 ML IV SCH (08:34)
[2023-07-31 09:05] LABS: Basophils # (A) 0.01 X 10*3/uL (0.00-0.10); Basophils % (A) 0.2 %; Eosinophils # (A) 0.05 X 10*3/uL (0.04-0.35); Eosinophils % (A) 1.2 %; HCT 26.2 % (37.2-46.3); HGB 8.1 g/dL (12.0-15.0); Lymphocytes # (A) 0.76 X 10*3/uL (0.90-5.00); Lymphocytes % (A) 18.9 %; MCH 25.8 pg (27.0-32.0); MCHC 30.9 g/dL (32.0-37.0); MCV 83.4 FL (80.0-97.0); Mean Platelet Volume 12.4 FL (9.5-12.2); Monocytes # (A) 0.41 X 10*3/uL (0.20-1.00); Monocytes % (A) 10.2 %; NRBC Per 100 WBC 0 X 10*3/uL (0.00-0.01); Neutrophils # (A) 2.78 X 10*3/uL (1.80-7.70); Neutrophils % (A) 69.3 %; Platelet Count 119 X 10*3/uL (140-440); RBC 3.14 X 10*6/uL (4.10-5.20); RDW 15.6 % (11.5-14.5); WBC 4.02 X 10*3/uL (4.50-10.00)
[2023-07-31 11:19] LABS: Glucose,Whole Blood 176 mg/dL (70-110)
--- NOTE | 2023-07-31 11:37 | US ---
EXAMINATION TYPE: US venous doppler duplex LE DATE OF EXAM: 07/31/2023 10:20 AM COMPARISON: NONE CLINICAL INDICATION: Female, 62 years old with history of fevers hx of multiple DVT; Hx left IVC filt er per patient. Right knee surgery x 3 days ago. On blood thinners. SIDE PERFORMED: Bilateral TECHNIQUE: The lower extremity deep venous system is examined utilizing real time linear array sonog tad with graded compression, doppler sonography and color-flow sonography. VESSELS IMAGED: Common Femoral Vein Deep Femoral Vein Greater Saphenous Vein * Femoral Vein Popliteal Vein Small Saphenous Vein * Proximal Calf Veins (* superficial vessels) Right Leg: Hyperechoic rounded area seen within anterior proximal FV = 0.6 cm, thickened valve vs ch ronic focal thrombus vs other etiology Left Leg: Negative for DVT IMPRESSION: 1. No definite deep venous thrombosis evident. 2. Echogenic area extending from the wall of the proximal right femoral vein of uncertain etiology zepeda s some stenosis at this level.
[2023-07-31] MEDS: HYDROmorphone 1 MG/ML 1 ML SYRINGE IVP PRN (12:18)
[2023-07-31 15:40] VITALS: BMI 27.9
[2023-07-31 16:12] LABS: Glucose,Whole Blood 145 mg/dL (70-110)
--- NOTE | 2023-07-31 16:57 | P.PN ---
Subjective Progress Note Date: 07/31/23 (delayed charting seen at 1030) Patient is a 62-year-old female with history of recurrent venous thromboembolism status post IVC filter, diabetes, hypothyroidism, and rheumatoid arthritis who initially presented for right knee replacement. Postoperative course has been complicated by recurrent fevers. Patient seen and examined at bedside. She denies any chest pain, shortness breath, nausea, vomiting, diarrhea. She is feeling okay. She recounts how her last to venous thromboembolic events occurred. present at bedside. All questions answered. Vital signs reviewed General: nontoxic, no distress, appears at stated age Cardiovascular: S1S2 reg, no murmur, positive posterior tibial pulse bilateral, Lungs: CTA bilateral, no rhonchi, no rales , no accessory muscle use Abdominal: soft, nontender to palpation, no guarding, no appreciable organomegaly Ext: no gross muscle atrophy, no edema b/l lower extremities, no contractures Neuro: CN II-XI grossly intact, no focal neuro deficits Psych: Alert, oriented, appropriate affect Assessment/Plan: 62-year-old female status post right total knee arthroplasty-postop care per o rthopedic team Continued fevers -patient without signs or symptoms of a definitive infection. Given her history of frequent probable embolic events we'll proceed with large cavity venous Dopplers. -COVID-19 testing negative. - check CXR and UA Acute blood loss anemia anemia, anticipated outcomes are - follow CBC - repeat in AM arthritis (RA, psoriatic arthritis) -hold plaquinel for 1 week if possible , to promote wound healing , if this is not tolerated , resume when needed -Continue prednisone 10 mg po daily History of recurrent venous thromboembolism , status post IVC filter -continue with eliquis DM -insulin sliding scale , monitor for hypoglycemia -hold oral hypoglycemic agents hypothyroid -Continue levothyroxine 125 MCG VANDA Imaging: None new Data Review: Laboratory analysis from today include CBC and basic metabolic profile which are remarkable for potassium of 3.4, platelets 4, hemoglobin 8.1, and platelets of 119 Thank you for allowing us to participate in the care of this pleasant patient. Do not hesitate to contact us with questions. Someone can be reached from the [facility] hospitalist group all hours of the day at [phone] or via perfect serve. This dictation was prepared using [email or web address] voice recognition software. Though every attempt is made to correct errors during dictation some may still exist. Objective - Vital Signs Vital signs: Vital Signs Temp 98.6 F 07/31/23 13:33 Pulse 91 07/31/23 13:33 Resp 18 07/31/23 13:33 BP 104/66 07/31/23 13:33 Pulse Ox 93 L 07/31/23 13:33 FiO2 Intake & Output 07/30/23 07/31/23 07/31/23 18:59 06:59 18:59 Intake Total 360 Balance 360 Weight 71.6 kg Intake: Oral 360 Other: # Voids 4 1 # Bowel Movements 1 - Labs CBC & Chem 7: 07/31/23 05:09 07/31/23 05:09 Labs: Abnormal Lab Results - Last 24 Hours (Table) 07/30/23 07/31/23 07/31/23 Range/Units 19:43 05:09 05:09 WBC 4.02 L (4.50-10.00) X 10*3/uL RBC 3.14 L (4.10-5.20) X 10*6/uL Hgb 8.1 L (12.0-15.0) g/dL Hct 26.2 L (37.2-46.3) % MCH 25.8 L (27.0-32.0) pg MCHC 30.9 L (32.0-37.0) g/dL RDW 15.6 H (11.5-14.5) % Plt Count 119 L (140-440) X 10*3/uL MPV 12.4 H (9.5-12.2) FL Lymphocytes # 0.76 L (0.90-5.00) X 10*3/uL Potassium 3.4 L (3.5-5.1) mmol/L Glucose 104 H (74-99) mg/dL POC Glucose (mg/dL) 149 H (70-110) mg/dL Total Protein 5.0 L (6.3-8.2) g/dL Albumin 2.6 L (3.5-5.0) g/dL 07/31/23 07/31/23 07/31/23 Range/Units 05:37 11:17 16:11 WBC (4.50-10.00) X 10*3/uL RBC (4.10-5.20) X 10*6/uL Hgb (12.0-15.0) g/dL Hct (37.2-46.3) % MCH (27.0-32.0) pg MCHC (32.0-37.0) g/dL RDW (11.5-14.5) % Plt Count (140-440) X 10*3/uL MPV (9.5-12.2) FL Lymphocytes # (0.90-5.00) X 10*3/uL Potassium (3.5-5.1) mmol/L Glucose (74-99) mg/dL POC Glucose (mg/dL) 125 H 176 H 145 H (70-110) mg/dL Total Protein (6.3-8.2) g/dL Albumin (3.5-5.0) g/dL
--- NOTE | 2023-07-31 18:44 | XR ---
EXAMINATION TYPE: XR chest 1V portable DATE OF EXAM: 07/31/2023 COMPARISON: None INDICATION: Fever TECHNIQUE: Single frontal view of the chest is obtained. FINDINGS: The heart size is normal. The pulmonary vasculature is normal. The lungs are clear. IMPRESSION: 1. No acute pulmonary process.
[2023-07-31 19:42] LABS: Glucose,Whole Blood 162 mg/dL (70-110)
[2023-07-31] MEDS: DIVALPROEX SPRINKLE 125 MG CAP.SPRINK PO SCH (19:48)
[2023-07-31] MEDS: SENNOSIDES-DOCUSATE SODIUM 1 EACH TAB PO SCH (19:48)
[2023-07-31] MEDS: FAMOTIDINE 20 MG TAB PO SCH (19:48)
[2023-07-31] MEDS: QUEtiapine 50 MG TAB PO SCH (19:48)
[2023-08-01] MEDS: HYDROcodone/APAP 10-325MG 1 EACH TAB PO PRN ×3 (04:10→15:43)
[2023-08-01] MEDS: LEVOTHYROXINE 125 MCG TAB PO SCH (06:00)
[2023-08-01 06:02] LABS: Glucose,Whole Blood 116 mg/dL (70-110)
[2023-08-01] MEDS: INSULIN ASPART (NovoLOG) 100 UNIT/ML VIAL SQ SCH ×2 (07:11→12:40)
[2023-08-01] MEDS: APIXABAN 5 MG TAB PO SCH (09:30)
[2023-08-01] MEDS: buPROPion SR 150 MG TABLET.ER PO SCH (09:30)
[2023-08-01] MEDS: CLOPIDOGREL 75 MG TAB PO SCH (09:30)
[2023-08-01] MEDS: DOXYCYCLINE 100 MG CAP PO SCH (09:30)
[2023-08-01] MEDS: PREGABALIN 75 MG CAP PO SCH (09:31)
[2023-08-01] MEDS: predniSONE 10 MG TAB PO SCH (09:31)
[2023-08-01 10:17] LABS: Appearance,Urine Cloudy (Clear); Bilirubin,Urine Negative (Negative); Blood,Urine Negative (Negative); Budding Yeast,Urine Many /hpf; Color,Urine Yellow; Glucose,Urine (UA) Negative (Negative); Ketones,Urine Trace (Negative); Leukocyte Esterase,Urine Large (Negative); Mucus,Urine Moderate /hpf; Nitrite,Urine Negative (Negative); PH, Urine 5.5 (5.0-8.0); Protein,Urine Trace (Negative); RBC,Urine 4 /hpf (0-5); Specific Gravity,Urine 1.016 (1.001-1.035); Squamous Epithelial Cell,Urine 8 /hpf (0-4); Urobilinogen,Urine <2.0 mg/dL (<2.0); WBC,Urine 119 /hpf (0-5)
[2023-08-01 11:12] LABS: Glucose,Whole Blood 162 mg/dL (70-110)
--- NOTE | 2023-08-01 11:29 | P.PN ---
Subjective Progress Note Date: 08/01/23 Patient is a 62-year-old female with history of recurrent venous thromboembolism status post IVC filter, diabetes, hypothyroidism, and rheumatoid arthritis who initially presented for right knee replacement. Postoperative course has been complicated by recurrent fevers. Patient seen and examined at bedside with present She continues to have some pain at her incisional site. She denies any cough, chest pain, shortness breath, nausea, vomiting, or diarrhea. She is asking to be discharged home. Vital signs reviewed General: nontoxic, no distress, appears at stated age Cardiovascular: S1S2 reg, no murmur, positive posterior tibial pulse bilateral, Lungs: CTA bilateral, no rhonchi, no rales , no accessory muscle use Abdominal: soft, nontender to palpation, no guarding, no appreciable organomegaly Ext: no gross muscle atrophy, trace edema b/l lower extremities, no contractures Neuro: CN II-XI grossly intact, no focal neuro deficits Psych: Alert, oriented, appropriate affect Assessment/Plan: 62-year-old female status post right total knee arthroplasty-postop care per orthopedic team Pyrexia, resolved - Urinalysis reviewed from yesterday and it is a contaminated specimen with greater than 8 epithelial cells. Not consistent with urinary tract infection -Lower extremity venous Dopplers negative for acute DVT -Chest x-ray negative for pneumonia -Patient has been afebrile for greater than 24 hours. Medically optimized for discharge home at the discretion of orthopedic surgery if Hgb Stable . -Recommendations added to discharge instructions to call for fever greater than 100.4. -COVID-19 testing negative. Acute blood loss anemia anemia, anticipated outcomes are - check CBC - start ferrous sulfate 325 mg daily arthritis (RA, psoriatic arthritis) -hold plaquinel for 1 week if possible- resume 08/03/23 -Continue prednisone 10 mg po daily History of recurrent venous thromboembolism , status post IVC filter -continue with eliquis DM -insulin sliding scale , monitor for hypoglycemia - resume glipizide 5 mg BID and trulicity 1.5 mg SQ weekly hypothyroid -Continue levothyroxine 125 MCG VANDA Imaging: -Lower extremity venous Dopplers negative for acute DVT -Chest x-ray negative for pneumonia Data Review: BS reviewed, highest in the last 24 hours is 176. Thank you for allowing us to participate in the care of this pleasant patient. Do not hesitate to contact us with questions. Someone can be reached from the [facility] hospitalist group all hours of the day at [phone] or via perfect serve. This dictation was prepared using [employer] voice recognition software. Though every attempt is made to correct errors during dictation some may still exist. Objective - Vital Signs Vital signs: Vital Signs Temp 97.5 F L 08/01/23 07:37 Pulse 86 08/01/23 08:00 Resp 17 08/01/23 08:00 BP 111/72 08/01/23 07:37 Pulse Ox 94 L 08/01/23 07:37 FiO2 Intake & Output 07/31/23 08/01/23 08/01/23 18:59 06:59 18:59 Weight 71.6 kg Other: Voiding Method Toilet Toilet # Voids 3 5 # Bowel Movements 1 - Labs CBC & Chem 7: 07/31/23 05:09 07/31/23 05:09 Labs: Abnormal Lab Results - Last 24 Hours (Table) 07/31/23 07/31/23 07/31/23 Range/Units 11:17 16:11 19:41 POC Glucose (mg/dL) 176 H 145 H 162 H (70-110) mg/dL Urine Appearance (Clear) Urine Protein (Negative) Urine Ketones (Negative) Ur Leukocyte Esterase (Negative) Urine WBC (0-5) /hpf Ur Squamous Epith Cells (0-4) /hpf Urine Mucus (None) /hpf Urine Yeast (Budding) (None) /hpf 08/01/23 08/01/23 08/01/23 Range/Units 06:00 09:48 11:11 POC Glucose (mg/dL) 116 H 162 H (70-110) mg/dL Urine Appearance Cloudy H (Clear) Urine Protein Trace H (Negative) Urine Ketones Trace H (Negative) Ur Leukocyte Esterase Large H (Negative) Urine WBC 119 H (0-5) /hpf Ur Squamous Epith Cells 8 H (0-4) /hpf Urine Mucus Moderate H (None) /hpf Urine Yeast (Budding) Many H (None) /hpf Microbiology - Last 24 Hours (Table) 07/30/23 10:46 Blood Culture - Preliminary Blood 07/30/23 10:41 Blood Culture - Preliminary Blood
[2023-08-01 12:18] LABS: HCT 28.2 % (34.0-46.0); Hypochromasia Slight; MCH 27.1 pg (25.0-35.0); MCHC 32.7 g/dL (31.0-37.0); MCV 82.9 fL (80.0-100.0); Platelet Count 130 k/uL (150-450); RDW 15.6 % (11.5-15.5); WBC 3.4 k/uL (3.8-10.6)
[2023-08-01 12:19] LABS: HGB 9.2 gm/dL (11.4-16.0)
[2023-08-01 14:03] VITALS: BP 129/84; PULSE 99; RESP 18; TEMP 98.1
[2023-08-01 16:40] LABS: Glucose,Whole Blood 119 mg/dL (70-110)
--- NOTE | 2023-08-01 16:44 | P.PN ---
Subjective Progress Note Date: 08/01/23 Patient is doing well this afternoon. She is mild discomfort in her right knee but is otherwise without complaints. Objective - Vital Signs Vital signs: Vital Signs Temp 98.1 F 08/01/23 13:45 Pulse 99 08/01/23 13:45 Resp 18 08/01/23 13:45 BP 129/84 08/01/23 13:45 Pulse Ox 96 08/01/23 13:45 FiO2 Intake & Output 07/31/23 08/01/23 08/01/23 18:59 06:59 18:59 Weight 71.6 kg Other: Voiding Method Toilet Toilet # Voids 3 5 # Bowel Movements 1 - Exam Patient is sitting up comfortably in a chair. She is alert and able to answer questions. On inspection the right knee there is no intact incisional wound VAC with good seal. She is able to actively plantar flex and dorsiflex her ankle and her toes. - Labs CBC & Chem 7: 08/01/23 11:52 07/31/23 05:09 Labs: Abnormal Lab Results - Last 24 Hours (Table) 07/31/23 08/01/23 08/01/23 Range/Units 19:41 06:00 09:48 WBC (3.8-10.6) k/uL RBC (3.80-5.40) m/uL Hgb (11.4-16.0) gm/dL Hct (34.0-46.0) % RDW (11.5-15.5) % Plt Count (150-450) k/uL POC Glucose (mg/dL) 162 H 116 H (70-110) mg/dL Urine Appearance Cloudy H (Clear) Urine Protein Trace H (Negative) Urine Ketones Trace H (Negative) Ur Leukocyte Esterase Large H (Negative) Urine WBC 119 H (0-5) /hpf Ur Squamous Epith Cells 8 H (0-4) /hpf Urine Mucus Moderate H (None) /hpf Urine Yeast (Budding) Many H (None) /hpf 08/01/23 08/01/23 08/01/23 Range/Units 11:11 11:52 16:38 WBC 3.4 L (3.8-10.6) k/uL RBC 3.40 L (3.80-5.40) m/uL Hgb 9.2 L D (11.4-16.0) gm/dL Hct 28.2 L (34.0-46.0) % RDW 15.6 H (11.5-15.5) % Plt Count 130 L (150-450) k/uL POC Glucose (mg/dL) 162 H 119 H (70-110) mg/dL Urine Appearance (Clear) Urine Protein (Negative) Urine Ketones (Negative) Ur Leukocyte Esterase (Negative) Urine WBC (0-5) /hpf Ur Squamous Epith Cells (0-4) /hpf Urine Mucus (None) /hpf Urine Yeast (Budding) (None) /hpf Microbiology - Last 24 Hours (Table) 07/30/23 10:46 Blood Culture - Preliminary Blood 07/30/23 10:41 Blood Culture - Preliminary Blood Assessment and Plan Plan: Patient is doing well and is okay to discharge home
== END 2023-08-01 17:55 | disposition home health service (06) ==
LOC: OR 08:38 → 4SSUR 13:03 → OR 07-31 08:05 → 4SSUR 07-31 08:11
PROVIDERS: ADMIT Orthopaedic Surgery; ATTEND Orthopaedic Surgery
DX: M17.11 Unilateral primary osteoarthritis, right knee (principal); E11.9 Type 2 diabetes mellitus without complications; R50.82 Postprocedural fever; D62 Acute posthemorrhagic anemia; G47.33 Obstructive sleep apnea (adult) (pediatric); E27.40 Unspecified adrenocortical insufficiency; L40.9 Psoriasis, unspecified; L40.50 Arthropathic psoriasis, unspecified; M06.9 Rheumatoid arthritis, unspecified; E03.9 Hypothyroidism, unspecified; M79.7 Fibromyalgia; F32.A Depression, unspecified; F41.9 Anxiety disorder, unspecified; Z11.52 Encounter for screening for COVID-19; Z79.01 Long term (current) use of anticoagulants; Z79.02 Long term (current) use of antithrombotics/antiplatelets; Z79.890 Hormone replacement therapy; Z79.85 Long-term (current) use of injectable non-insulin antidiabetic drugs; Z79.84 Long term (current) use of oral hypoglycemic drugs; Z79.52 Long term (current) use of systemic steroids; Z79.899 Other long term (current) drug therapy; Z88.0 Allergy status to penicillin; Z88.1 Allergy status to other antibiotic agents; Z91.030 Bee allergy status; Z86.711 Personal history of pulmonary embolism; Z86.718 Personal history of other venous thrombosis and embolism; Z90.710 Acquired absence of both cervix and uterus; Z90.49 Acquired absence of other specified parts of digestive tract; Z95.828 Presence of other vascular implants and grafts; Z98.1 Arthrodesis status; Z96.612 Presence of left artificial shoulder joint; Z98.890 Other specified postprocedural states; Z83.3 Family history of diabetes mellitus; Z82.49 Family history of ischemic heart disease and other diseases of the circulatory system
CPT/HCPCS: 0055T; 27447; 64447; 64999; 71045; 80053; 81001; 83036; 85025; 85027; 87086; 93970